=== PATIENT | female | born 1990 | race Caucasian/White ===

== ENCOUNTER 2020-12-19 11:38 | Outpatient (CLI) | payer OTHER | END 2020-12-19 14:00 | disposition home or self-care (01) | LOC: MRI 11:38 | DX: H35.063 Retinal vasculitis, bilateral (principal); G93.89 Other specified disorders of brain | CPT/HCPCS: 70553 ==

== ENCOUNTER 2020-12-28 09:45 | Outpatient (CLI) | payer OTHER | END 2020-12-28 10:03 | disposition home or self-care (01) | LOC: TOM 09:45 | DX: Q33.8 Other congenital malformations of lung (principal); H35.063 Retinal vasculitis, bilateral ==